=== PATIENT | female | born 1955 | race Caucasian/White ===

== ENCOUNTER → 2021-02-27 | Outpatient (CLI) | payer BC, MEDICARE ==
--- NOTE | 2021-02-28 12:01 | Diagnostic Imaging Report ---
INDICATION: Abnormal thyroid ultrasound. The patient was administered 203 uCi of I-123 orally and a 4 hour and 24-hour thyroid uptake was performed. In addition, thyroid scan was performed. Patient's abnormal outside thyroid ultrasound is not available for direct comparison. 4 hour uptake is approximately 15%. 24-hour uptake is 35%. Normal 24-hour thyroid uptake is approximately 10-30%. The thyroid scan does show fairly homogeneous uptake of activity throughout both lobes of the thyroid. There is some questionable increased activity in the mid to lower pole of the left lobe. Possibility of uptake within a hyperfunctioning nodule cannot be entirely excluded and correlation with prior ultrasound is recommended. No cold nodules are identified. IMPRESSION: Mildly elevation of 24 hour thyroid uptake at 35% consistent with mild hyperthyroidism. There is some uptake in the mid to lower pole left lobe and the possibility of a hyperfunctioning nodule cannot be entirely excluded. Please correlate with patient's thyroid ultrasound. Dictated by: Dictated on workstation # [id number]
== END ==
LOC: CARD 11:03
PROVIDERS: ATTEND Nurse Practitioner Family
DX: E04.2 Nontoxic multinodular goiter (principal)
CPT/HCPCS: 78014; A9516